=== PATIENT | female | born 1955 | race Caucasian/White ===

== ENCOUNTER → 2022-02-06 | Outpatient (CLI) | payer MEDICARE ==
[~2022-02-06] MED LIST: FLOMAX 0.4 MG0.4 MG PO; GLIPIZIDE10 MG PO; JANUVIA25 MG PO; LEVOTHYROXINE75 MC1 PO; LISINOPRIL5 MG PO; METOPROLOL TART25 MG PO; SIMVASTATIN20 MG PO; VITAMIN D21250 MCG PO
[2022-02-06 10:10] LABS: HEMOGLOBIN 14.1 gm/dl (12.3-15.3); RED BLOOD COUNT 4.71 M/UL (4.00-5.10); WHITE BLOOD COUNT 8.7 K/UL (4.5-11.0)
[2022-02-06 10:40] LABS: BUN/CREATININE RATIO 20 (0-10)
== END ==
LOC: OPSV2 09:00
PROVIDERS: Obstetrics & Gynecology
DX: Z01.818 Encounter for other preprocedural examination (principal); N81.9 Female genital prolapse, unspecified
CPT/HCPCS: 80053; 81001; 85025; 87077; 87086; 87186; 93005

== ENCOUNTER → 2022-02-17 | Day surgery (SDC) | payer MEDICARE ==
[~2022-02-17] MED LIST changes: +ALLERGY RELIEF5 MG PO; +DOCUSATE SODIU250 MG PO; +HYDROCODONE-AC1 EACH PO; +IBUPROFEN600 MG PO
== END | disposition home or self-care (01) ==
LOC: OR 05:15 → EDSTATUS 09:45
DX: N81.6 Rectocele (principal); N80.0 Endometriosis of uterus; N72 Inflammatory disease of cervix uteri; D27.1 Benign neoplasm of left ovary; D27.0 Benign neoplasm of right ovary; I10 Essential (primary) hypertension; E78.5 Hyperlipidemia, unspecified; E11.9 Type 2 diabetes mellitus without complications; Z79.84 Long term (current) use of oral hypoglycemic drugs; Z79.899 Other long term (current) drug therapy
CPT/HCPCS: 71045; 82962; C1769; J0690; J1100; J1170; J1885; J2001; J2250; J2270; J2405; J2704; J2710; J3010